=== PATIENT | female | born 1960 | race Caucasian/White ===

== ENCOUNTER 2017-01-16 14:35 | Emergency (ER) | payer BC ==
--- NOTE | ~2017-01-16 | ER ---
PATIENT'S NAME: TEJA CORONADO [facility] AGE: 57 Y [address] ROOM: [place] [address] LOCATION: [facility] ADMIT DATE: 01/16/2017 ER/Outpatient Report DISCHARGE DATE: 01/16/2017 FAMILY PHYSICIAN: Stefan Machado MD ATTENDING PHYSICIAN: Fox Shore Admission date and time documented in the medical record. I saw the patient at 1500 hours. CHIEF COMPLAINT: Fever, body aches, weakness, headache, chills, nausea. HISTORY OF PRESENT ILLNESS: The patient is a 57-year-old female, who over the past 4 days has had increasing body aches, generalized malaise, myalgias, arthralgias, along with generalized weakness, frontal headache, fever, chills, but no sweats, no rigors. Some nausea, but no vomiting or diarrhea. No urinary frequency, urgency, or dysuria. No fall or trauma. No lightheadedness or dizziness, syncope, or near syncope. Does have some ear pain but no throat pain, nose pain, eye pain, neck, or spine pain. No chest pain. No cough. No abdominal pain. No diarrhea or urinary frequency, urgency, or dysuria. No skin eruptions or rash. No neuro changes, psych issues, or endocrine problems. HOME MEDICATIONS: See attached medication list. ALLERGIES: PENICILLIN AND SULFA. SOCIAL HISTORY: Hypertension, dyslipidemia, gastroesophageal reflux. OPERATIONS: Tonsillectomy, tubal surgery. REVIEW OF SYSTEMS: All systems reviewed by me are negative with the exception of those discussed in the history of present illness. PHYSICAL EXAMINATION: VITAL SIGNS: Temperature 98.6 tympanic, pulse 64 and regular, respirations 16, blood pressure 175/78, O2 saturation on room air is 94%. HEENT: Head: Normocephalic. Eyes, clear. Ears, clear TMs bilaterally. Nose and Throat: Clear. Mucous membranes moist. NECK: No nuchal rigidity. No thyromegaly or cervical adenopathy. Full range PATIENT'S NAME: TEJA CORONADO [facility] AGE: 57 Y [address] ROOM: [place] [address] LOCATION: [facility] ADMIT DATE: 01/16/2017 ER/Outpatient Report DISCHARGE DATE: 01/16/2017 FAMILY PHYSICIAN: Stefan Machado MD ATTENDING PHYSICIAN: Fox Shore of motion. No tenderness. SPINE: Nontender. No deformity. LUNGS: Clear. Good air flow. No rales, rhonchi, or wheezes. HEART: Regular. Pulses are palpable. ABDOMEN: Soft, nondistended, nontender. Good bowel tones. No organomegaly or abnormal mass palpable. EXTREMITIES: Without peripheral edema, cyanosis, or deformity. No joint swelling or redness. NEURO: Cranial nerves intact. No lateralizing sign. The Patient is awake, alert, and cooperative. Motor and sensory intact. SKIN: Clear. No skin eruptions or rash. VASCULAR: Intact. LABORATORY DATA AND X-RAYS: Procalcitonin was 0.17. Lactate was 2.1. White count was 18,100, 85 segs, 7 lymphs, 7 monos, hemoglobin was 13.9, hematocrit 41.6, platelet count was 218,000. Sedimentation rate was 76. Urine showed 5-10 whites, 0-2 reds, 5-10 epithelial cells, few bacteria per high-powered field, culture is pending. Blood cultures x2 drawn, results are pending. CMS was normal except for a slight low potassium of 3.5, elevated glucose 142, CRP was 30.7. Chest x-ray showed no acute infiltrate or changes. We will review x-ray with the radiologist. EMERGENCY DEPARTMENT COURSE: I did start the patient on IV normal saline, gave her liter in the emergency room. Gave her 50 mg of Benadryl followed in 10 minutes by 10 mg of Compazine, also gave her Rocephin 2 g IV in the emergency department. IMPRESSION: 1. Febrile illness, etiology uncertain. 2. Hypertension. 3. Dyslipidemia. PLAN: The patient received IV Rocephin. Dismissed home. Observation. Activity as tolerated. Fluids and diet as tolerated. Continue home medications and care. Rest. Z-Terrell, take as directed. Follow up with personal physician in 2 to 3 days or return to the emergency room sooner if needed. Discussion ensued with the patient and her regarding my findings and recommendations, they understand. FOX SHORE MD PATIENT'S NAME: TEJA CORONADO [facility] AGE: 57 Y [address] ROOM: [place] [address] LOCATION: [facility] ADMIT DATE: 01/16/2017 ER/Outpatient Report DISCHARGE DATE: 01/16/2017 FAMILY PHYSICIAN: Stefan Machado MD ATTENDING PHYSICIAN: Fox Shore SDS/modl /[id number] d: 01/16/17 2254 t: 01/17/17 1837, OUTPATIENT REPORT
[2017-01-16 16:03] LABS: BASOPHIL % 0.2 %; HEMATOCRIT 41.6 % (33.0-46.0); HEMOGLOBIN 13.9 g/dL (10.0-15.0); IMMATURE GRANULOCYTE # 0.2 K/uL (0.0-0.3); LYMPHOCYTE # 1.3 K/uL (0.8-4.0); LYMPHOCYTE % 7.2 %; MCH 32.3 pg (27.0-34.0); MCHC 33.4 gm/dL (32.0-36.5); MCV 96.7 fl (83.0-98.0); MONOCYTE # 1.3 K/uL (0.0-1.0); MONOCYTE % 7.1 %; NEUTROPHIL # (ANC) 15.3 K/uL (1.8-7.8); NEUTROPHIL % 84.5 %; NRBC % 0 /100WBC (0-0.00); PLATELET COUNT 218 K/uL (150-450); RDW-CV 12.5 % (11.9-14.6)
[2017-01-16 16:04] LABS: WBC 18.1 K/uL (4.0-11.0)
[2017-01-16 16:36] LABS: ALBUMIN 3.1 gm/dL (3.5-5.0); ANION GAP 12.5 (10.0-19.0); TOTAL BILIRUBIN 1.2 mg/dL (0.0-1.5); TOTAL PROTEIN 7.6 g/dL (6.0-8.4)
[2017-01-16 16:37] LABS: POTASSIUM 3.5 mMol/L (3.7-5.1)
[2017-01-16 17:11] LABS: BILIRUBIN URINE NEGATIVE (NEGATIVE); BLOOD URINE 25 /UL (NEGATIVE); COLOR URINE YELLOW (YELLOW); GLUCOSE URINE NEGATIVE (NEGATIVE); KETONE URINE 50 mg/dL (NEGATIVE); LEUKOCYTES URINE NEGATIVE /UL (NEGATIVE); NITRITE URINE NEGATIVE (NEGATIVE); PROTEIN URINE 30 mg/dL (NEGATIVE); TURBIDITY URINE CLEAR (CLEAR); UROBILINOGEN URINE 1 mg/dL (NORMAL)
[2017-01-16 17:17] LABS: BACTERIA URINE FEW (NEGATIVE); RBC URINE 0-2 #/HPF (NEGATIVE)
== END 2017-01-16 18:44 | disposition disaster alternative care site (69) ==
LOC: GMED 14:35
PROVIDERS: Emergency Medicine
DX: R50.9 Fever, unspecified (principal); I10 Essential (primary) hypertension; K21.9 Gastro-esophageal reflux disease without esophagitis; E78.5 Hyperlipidemia, unspecified; Z88.2 Allergy status to sulfonamides; Z98.890 Other specified postprocedural states; Z88.0 Allergy status to penicillin
CPT/HCPCS: J0696; J0780; J1200; J7030

== ENCOUNTER 2017-02-07 20:30 | Emergency (ER) | payer BC ==
--- NOTE | ~2017-02-07 | ER ---
PATIENT'S NAME: TEJA CORONADO [facility] AGE: 57 Y [address] ROOM: [place] [address] LOCATION: [facility] ADMIT DATE: 02/07/2017 ER/Outpatient Report DISCHARGE DATE: 02/07/2017 FAMILY PHYSICIAN: Physician, Unknown ATTENDING PHYSICIAN: Tricia Lundberg HISTORY OF PRESENT ILLNESS: This is a 57-year-old female who presents today by EMS for syncopal episode. This occurred when the patient was sitting, she was eating at [facility], and then states that she felt sort of like chills and sort of diaphoretic and nauseous, but never had chest pain and then she passed out. She was sort of lowered to the ground. She was out for about a minute or so and then came through. No seizure-like activity was noted. No nausea or vomiting. She is at baseline mental status now; just says that she feels slightly dizzy and tired with some nausea. No other complaints. No pain. No chest pain. No shortness of breath. PAST MEDICAL HISTORY: Includes hypertension, cholesterol, GERD, and morbid obesity. PAST SURGICAL HISTORY: Includes ear tubes in January and tubal . SOCIAL HISTORY: Does not smoke or use any drugs. Occasional alcohol. MEDICATIONS: Include, 1. Metoprolol. 2. Lisinopril. 3. Lipitor. 4. Prilosec. 5. Multivitamins. ALLERGIES: PENICILLIN AND SULFA. REVIEW OF SYSTEMS: Reviewed by me and negative with the exception of those discussed in the HPI. PHYSICAL EXAMINATION: VITAL SIGNS: The patient is 5 feet 2 inches. She weighs 132.6 kilos. Blood pressure is 141/65, heart rate 56, respiratory rate 16, temperature is 96.6, and saturating 96% on room air. GENERAL: The patient is not in any acute distress. She is alert and PATIENT'S NAME: TEJA CORNOADO [facility] AGE: 57 Y [address] ROOM: [place] [address] LOCATION: [facility] ADMIT DATE: 02/07/2017 ER/Outpatient Report DISCHARGE DATE: 02/07/2017 FAMILY PHYSICIAN: Physician, Unknown ATTENDING PHYSICIAN: Lundberg,Tricia A interactive. She does not appear toxic. She is not pale. She does not appear diaphoretic. HEENT: Her pupils are equal and reactive to light. She tracks appropriately. She is A and O x4. Her GCS is 15. HEART: Her heart rate is slightly bradycardic at this time, about 52 beats per minute. Her blood pressure is around 113/67 at this time. LUNGS: Her lung sounds are clear. She has no labored breathing, tachypnea, or accessory muscle use. ABDOMEN: Soft, nontender, nondistended. She has no guarding or rebound. She is morbidly obese, obese pannus. EXTREMITIES: She does have pedal edema, it is about 1+. She also has chronic venous stasis changes on the right lower extremity. No calf tenderness though. No crepitus. No evidence of necrosis. SKIN: Warm and dry. She is not diaphoretic. She is not cool or cyanotic. She does not have any mottling. EMERGENCY ROOM COURSE: An IV was established by the EMS so that we will continue infusing some fluids in there. We did check an EKG, which on my read shows sinus bradycardia, slightly flattened T-waves in lead III, but otherwise no ST elevations or ST depressions, no ectopy. We checked some blood work as well. So, initial blood work showed a WBC of 6.4, H and H of 13.2/40, platelets are 229, no bandemia. Coags are within normal limits. CMS shows sodium of 141, potassium 3.6, chloride 108, CO2 of 23, anion gap 13.6, glucose 131, BUN 18, creatinine is 1.1, bilirubin is 0.9, alkaline phosphatase is 89, AST is 20, ALT is 35, GFR is 51, magnesium is 1.8, CPK is 103, CK-MB is 1.5, and troponin was less than 0.04. D-dimer elevated at 0.78. A CTA chest was done to rule out PE and it was negative for any PE. We did a second set of enzymes as well. CPK was 114, CK-MB 1.6, Troponin less than 0.04. Also, the proBNP was within normal limits as well. Discussed this with the patient. She says she feels better. She had one syncopal episode. She is not dizzy. She is able to walk here. EKG is normal. Her chest CT is okay, and her cardiac enzymes are negative x2. We will have her follow up with her primary care doctor in the morning. She understands the reasons to come back to the ER sooner. IMPRESSION: Syncopal episode. MD JINA BOB/jamin PATIENT'S NAME: TEJA CORONADO [facility] AGE: 57 Y [address] ROOM: [place] [address] LOCATION: [facility] ADMIT DATE: 02/07/2017 ER/Outpatient Report DISCHARGE DATE: 02/07/2017 FAMILY PHYSICIAN: Physician, Unknown ATTENDING PHYSICIAN: Tricia Lundberg /[id number] d: 02/08/17 0836 t: 03/09/17 1101, OUTPATIENT REPORT
[2017-02-07 21:06] LABS: BASOPHIL % 0.5 %; EOSINOPHIL # 0.1 K/uL (0.0-0.5); EOSINOPHIL % 1.6 %; HEMOGLOBIN 13.2 g/dL (10.0-15.0); IMMATURE GRANULOCYTE % 0.3 %; LYMPHOCYTE # 2.1 K/uL (0.8-4.0); LYMPHOCYTE % 33.5 %; MCH 32.8 pg (27.0-34.0); MCV 99.3 fl (83.0-98.0); MONOCYTE # 0.5 K/uL (0.0-1.0); MONOCYTE % 8.3 %; MPV 10.7 fl (9.4-12.4); NEUTROPHIL # (ANC) 3.6 K/uL (1.8-7.8); NEUTROPHIL % 55.8 %; NRBC % 0 /100WBC (0-0.00); PLATELET COUNT 229 K/uL (150-450); RBC 4.03 M/uL (3.50-5.50); RDW-CV 12.9 % (11.9-14.6); WBC 6.4 K/uL (4.0-11.0)
[2017-02-07 21:13] LABS: INR - (THERAPEUTIC) 1.04 (0.92-1.07); PROTIME 10.9 SECONDS (9.8-11.4); PTT 23 SECONDS (25-32)
[2017-02-07 21:26] LABS: ALBUMIN 3.5 gm/dL (3.5-5.0); ALK PHOS 89 IU/L (33-138); ALT 35 IU/L (12-78); ANION GAP 13.6 (10.0-19.0); AST 20 IU/L (10-40); BLOOD UREA NITROGEN 18 mg/dL (6-24); CALCIUM 8.8 mg/dL (8.5-10.5); CHLORIDE 108 mMol/L (96-110); CO2 23 mMol/L (22-32); CPK 103 IU/L (21-215); CREATININE 1.1 mg/dL (0.5-1.1); ESTIMATED GFR (MDRD EQUATION) 51; MAGNESIUM 1.8 mg/dL (1.8-2.6); POTASSIUM 3.6 mMol/L (3.7-5.1); SODIUM 141 mMol/L (135-145); TOTAL PROTEIN 6.7 g/dL (6.0-8.4)
[2017-02-07 21:28] LABS: TOTAL BILIRUBIN 0.9 mg/dL (0.0-1.5)
[2017-02-07 23:15] LABS: CPK 114 IU/L (21-215)
== END 2017-02-07 23:37 | disposition disaster alternative care site (69) ==
LOC: GMED 20:30
PROVIDERS: Emergency Medicine
DX: R55 Syncope and collapse (principal); I10 Essential (primary) hypertension; K21.9 Gastro-esophageal reflux disease without esophagitis; E66.01 Morbid (severe) obesity due to excess calories; Z88.0 Allergy status to penicillin; Z88.2 Allergy status to sulfonamides; Z79.899 Other long term (current) drug therapy; Z98.890 Other specified postprocedural states
CPT/HCPCS: Q9967

== ENCOUNTER → 2017-02-07 | Outpatient (CLI) | payer BC | END | disposition disaster alternative care site (69) | LOC: GAMB 20:01 | DX: R55 Syncope and collapse (principal); I10 Essential (primary) hypertension; R42 Dizziness and giddiness; R11.0 Nausea | CPT/HCPCS: A0425; A0427; J2405; J7030 ==

== ENCOUNTER → 2017-06-20 | Outpatient (CLI) | payer BC | LOC: GBCOE 07:23 | DX: Z12.31 Encounter for screening mammogram for malignant neoplasm of breast (principal) | CPT/HCPCS: G0202 ==